=== PATIENT | female | born 1950 | race Caucasian/White ===

== ENCOUNTER → 2018-05-01 | Outpatient (CLI) | payer MEDICAID, MEDICARE | END | disposition home or self-care (01) | LOC: RAD 13:22 | PROVIDERS: ATTEND Neurological Surgery | DX: S32.018A Other fracture of first lumbar vertebra, initial encounter for closed fracture (principal); M40.209 Unspecified kyphosis, site unspecified; X58.XXXA Exposure to other specified factors, initial encounter; Y93.89 Activity, other specified; Y92.89 Other specified places as the place of occurrence of the external cause; Y99.8 Other external cause status; M47.816 Spondylosis without myelopathy or radiculopathy, lumbar region | CPT/HCPCS: 72114 ==

== ENCOUNTER → 2019-06-16 | Outpatient (CLI) | payer MEDICARE | END | disposition home or self-care (01) | LOC: RAD 12:10 | PROVIDERS: ATTEND Neurological Surgery | DX: M48.05 Spinal stenosis, thoracolumbar region (principal); M53.86 Other specified dorsopathies, lumbar region | CPT/HCPCS: 72114 ==